=== PATIENT | male | born 1980 | race Caucasian/White ===

== ENCOUNTER 2025-03-30 18:44 | Emergency (ER) | payer BC ==
[~2025-03-30] VITALS: Ht 172.7 cm; Wt 97.5 kg
[2025-03-30 18:55] VITALS: BP 121/69; TEMP 98; O2SAT 97
[2025-03-30] MEDS ORDERED: IBUP-1953 PO (19:15)
== END 2025-03-30 19:57 | disposition home or self-care (01) ==
LOC: ER 19:40
DX: B34.9 Viral infection, unspecified (principal); R05.9 Cough, unspecified; R09.81 Nasal congestion; R51.9 Headache, unspecified

== ENCOUNTER 2025-04-20 14:31 | Emergency (ER) | payer BC ==
[~2025-04-20] VITALS: Ht 172.7 cm; Wt 95.3 kg
[~2025-04-20 14:31] MED LIST: IBUP-1953 PO
[2025-04-20 14:33] VITALS: BP 127/80; TEMP 98.4
[2025-04-20] MEDS ORDERED: IBUP-1490 PO (16:30)
[2025-04-20] MEDS ORDERED: IBUPROFEN 600 MG TABLET ONE (16:37)
[2025-04-20 16:38] VITALS: O2SAT 98
[2025-04-20] MEDS: IBUPROFEN 600 MG TABLET PO ONE (16:38)
== END 2025-04-20 16:39 | disposition home or self-care (01) ==
LOC: ER 14:40
DX: S59.901A Unspecified injury of right elbow, initial encounter (principal); Z79.1 Long term (current) use of non-steroidal anti-inflammatories (NSAID); W10.9XXA Fall (on) (from) unspecified stairs and steps, initial encounter; Y93.89 Activity, other specified; Y92.89 Other specified places as the place of occurrence of the external cause; Y99.9 Unspecified external cause status
CPT/HCPCS: 73030-TC; 73080-TC